=== PATIENT | female | born 1980 | race Caucasian/White ===

== ENCOUNTER 2018-09-20 13:11 | Outpatient (REF) | payer BC, SELFPAY ==
--- NOTE | 2018-09-20 10:30 | PAPFT_PTH ---
PATIENT: Annabel Landeros LOC: [facility] U#:[id number] AGE/SX: 38/F ROOM: RE09/20/[address]: Shantelle Bates : 1980 BED: DIS: 09/20/2018 SPEC #: [id number] RECD: 09/23/18 12:46 STATUS: YIN REQ #: [id number] ISAIAS: 09/20/18 10:[address]: Shantelle Bates DEPT: [facility] Cytology RECD BY: Debby Dhillon Tissues: 1 - CX/ENDOCX FOR PAP SMEARS Procedures: PAP THIN PREP/[facility] Screening HPV DNA PROBE Comments: [id number]
[2018-09-20 21:14] LABS: Cholesterol 160 mg/dL (50-200); Glucose 64 mg/dL (70-100); HDL Cholesterol 91 mg/dL (40-60); LDL CHOLESTEROL 57 mg/dL (<100); Triglyceride 63 mg/dL (30-150)
== END 2018-09-20 13:31 ==
LOC: NCHCN 13:11
PROVIDERS: PCP Family Medicine; Visit Provider Family Medicine
DX: Z00.00 Encounter for general adult medical examination without abnormal findings (principal); Z13.1 Encounter for screening for diabetes mellitus; Z13.220 Encounter for screening for lipoid disorders; Z12.4 Encounter for screening for malignant neoplasm of cervix; Z11.51 Encounter for screening for human papillomavirus (HPV)
CPT/HCPCS: 80061; 82947; 83721; 88142; 87624

== ENCOUNTER 2022-04-14 18:09 | Outpatient (REF) | payer MEDICAID, SELFPAY ==
[2022-04-14 15:28] LABS: HCT 34.9 % (36.0-46.0); HGB 11.5 g/dL (11.2-15.7); MCH 31.9 pg (27.0-33.0); MCV 97 fL (80-95); MPV 10.5 fL (8.0-11.0); Platelet Count 238 10^3/uL (130-400); RDW 11.9 % (11.7-14.6); RDW-SD 42.7 fL; WBC 5.32 10^3/uL (4.4-10.8)
[2022-04-14 16:58] LABS: Anion Gap 9.6 mmol/L (3-11); BUN 13 mg/dL (7-18); CO2 24.4 mmol/L (21.0-32.0); CREATININE 0.7 mg/dL (0.55-1.02); Calcium 8.4 mg/dL (8.5-10.1); Chloride 106 mmol/L (98-107); Glucose 81 mg/dL (74-106); Sodium 140 mmol/L (136-145); TSH (W/Ref FT4) 0.91 uIU/mL (0.36-3.74)
== END 2022-04-14 18:10 | disposition home or self-care (01) ==
LOC: NCHCN 18:09
PROVIDERS: PCP Family Medicine; Visit Provider Family Medicine
DX: R00.2 Palpitations (principal)
CPT/HCPCS: 80048; 85027; 84443

== ENCOUNTER 2023-11-29 15:15 | Outpatient (REF) | payer BC, SELFPAY ==
--- NOTE | 2023-11-29 14:10 | PAPFT_PTH ---
PATIENT: Annabel Landeros LOC: [facility] U#:[id number] AGE/SX: 43/F ROOM: RE11/29/[address]: Shantelle Bates : 1980 BED: DIS: 11/29/2023 SPEC #: [id number] RECD: 11/30/23 12:54 STATUS: YIN REMarilin #: [id number] ISAIAS: 11/29/23 14:[address]: Shantelle Bates DEPT: [facility] Cytology RECD BY: Debby Dhillon Tissues: 1 - CX/ENDOCX FOR PAP SMEARS Procedures: PAP THIN PREP/[facility] Screening HPV DNA PROBE Comments: [id number]
== END 2023-11-29 15:16 | disposition home or self-care (01) ==
LOC: NCHCN 15:15
PROVIDERS: PCP Family Medicine; Visit Provider Family Medicine
DX: Z00.00 Encounter for general adult medical examination without abnormal findings (principal); Z12.4 Encounter for screening for malignant neoplasm of cervix
CPT/HCPCS: 88142; 87624

== ENCOUNTER 2025-08-17 15:54 | Outpatient (REF) | payer OTHER, SELFPAY ==
[2025-08-17 15:42] LABS: HCT 36.5 % (36.0-46.0); HGB 12.1 g/dL (11.2-15.7); MCH 31.8 pg (27.0-33.0); MCHC 33.2 % (32.0-36.0); MCV 96 fL (80-95); MPV 10.4 fL (8.0-11.0); Platelet Count 263 10^3/uL (130-400); RBC 3.81 10^6/uL (3.93-5.22); RDW 12.3 % (11.7-14.6); RDW-SD 43.3 fL; WBC 4.73 10^3/uL (4.4-10.8)
[2025-08-17 17:13] LABS: Hemoglobin A1C 5.1 % (<5.7)
[2025-08-18 15:30] LABS: Calculated LDL 75 mg/dL (<100); Cholesterol 170 mg/dL (<200); HDL Cholesterol 81 mg/dL (>or=50); Triglyceride 71 mg/dL (<150)
[2025-08-18 15:33] LABS: Iron 72 ug/dL (50-170); Total Iron Binding Capacity 270 ug/dL (250-450); Transferrin Sat 27 % (15-50)
== END 2025-08-17 15:55 | disposition home or self-care (01) ==
LOC: NCHCN 15:54
PROVIDERS: PCP Family Medicine; Visit Provider Family Medicine
DX: Z86.2 Personal history of diseases of the blood and blood-forming organs and certain disorders involving the immune mechanism (principal); Z13.1 Encounter for screening for diabetes mellitus; Z13.220 Encounter for screening for lipoid disorders
CPT/HCPCS: 80061; 85027; 83036; 83540; 83550